=== PATIENT | female | born 1995 | race Caucasian/White ===

== ENCOUNTER 2024-04-17 14:22 | Observation (INO) | payer OTHER, SELFPAY ==
[2024-04-17] VITALS (13 sets, daily range): BP systolic 111–124; BP diastolic 63–78; PULSE 74–99; RESP 16–20; TEMP 36.6–37.1; O2SAT 90–100; BMI 32.7; BMI 33.9
--- NOTE | 2024-04-17 | APP_PTH ---
PATIENT: SAPNA PARK LOC: MS3 U#:[id number] AGE/SX: 29/F ROOM: [facility] [place] RE04/17/[address]: Dr. Quyen Jones MD : 1995 BED: 1 DIS: 04/18/2024 SPEC #: [id number] RECD: 04/18/24 08:39 STATUS: CAROLINE REJourdan #: [id number] NEIDA: 04/17/24 00:[address]: Quyen Jones DEPT: SURGICAL PATHOLOGY RECD BY: Obie Ornelas ENTERED: 04/18/24 09:03 SP TYPE: APPENDIX OT DR: No Primary Care Phys Tissues: Appendix, NOS Procedures: Surgery Specimen Level III HEADER OPERATION: Laparoscopic, appendectomy PRE-OP DIAGNOSIS: Acute appendicitis TISSUE SUBMITTED: Appendix MICROSCOPIC DIAGNOSIS Appendix, appendectomy: Acute ruptured appendicitis and periappendicitis. LORIE/ 04/19/2024 MICROSCOPIC DESCRIPTION Slides are reviewed. GROSS DESCRIPTION Received in fixative is one container labeled with the patient's name and designated appendix. The specimen consists of appendix measuring 7.5 cm in length and up to 1.0 cm in diameter. The attached periappendiceal adipose tissue measures up to 3.5 cm in width. The serosa is congested. No obvious perforation is identified. The lumen is filled with fecal material. No fecalith is identified. Ampoule Sealer sections are submitted in one cassette. / SJ:mr 04/18/2024 TC:2 CPT: 94395
--- NOTE | 2024-04-17 15:14 | EX.ED.DYSGE1 ---
HPI History of Present Illness Chief Complaint: Abd Pain [facility] Medical History (Updated 04/17/24 @ 17:33 by Windy Jorgensen) delivery delivered Home Medications ?Medication ?Instructions ?Recorded ?Last Taken ?Type NK 04/17/24 Unknown History Allergy/AdvReac Type Severity Reaction Status Date / Time Penicillins Allergy Hives Verified 04/17/24 14:24 Surgical History (Updated 04/17/24 @ 17:33 by Windy Jorgensen) H/O wisdom tooth extraction History of surgical removal of ganglion cyst Social History Smoking Status: Never smoker EXAM Physical Exam Const Vital Signs: 04/17/24 14:24 04/17/24 15:36 04/17/24 17:00 Temperature 98.2 F Temperature Source Temporal Pulse Rate 99 74 84 Respiratory Rate 18 16 19 H Blood Pressure 124/78 H 112/72 116/68 Blood Pressure Mean 93 85 84 Blood Pressure Source Blood Pressure Position Blood Pressure Location Pulse Ox 98 98 99 Oxygen Delivery Method Room Air Room Air Room Air 04/17/24 17:00 04/17/24 17:00 Temperature 98.8 F 98.5 F Temperature Source Oral Pulse Rate 83 88 Respiratory Rate 19 H 16 Blood Pressure 116/68 116/68 Blood Pressure Mean 84 84 Blood Pressure Source Monitor Blood Pressure Position Semi-Fowlers Blood Pressure Location Right Arm Pulse Ox 100 100 Oxygen Delivery Method Room Air MDM MDM MDM Narrative Medical decision making narrative: HISTORY OF PRESENT ILLNESS: 29-year-old female presents with abdominal pain and low back pain that started 2 days ago. Notes is worse today. She is having trouble tolerating p.o. fluids. Notes symptoms in the right lower quadrant. Nonradiating. Last bowel movement was today. No melena hematochezia. No vomiting. She does note nausea. Notes history of but otherwise still has her appendix and other intra-abdominal organs. No chest pain or shortness of breath. No vaginal bleeding discharge. No concern for STDs. No urinary complaints of dysuria frequency urgency. REVIEW OF SYSTEMS: Pertinent positives: Abdominal pain, nausea Pertinent negatives: Vomiting, chest pain PHYSICAL EXAM: Nursing triage notes reviewed, Vital signs reviewed Constitutional: please see mdm HENT: MMM Eyes: Pupils equal round and reactive to light, Extraocular muscles intact Neck: No stridor, no JVD, full neck ROM Lungs: Clear to auscultation, No wheezing or rales. No increased work of breathing, no conversational dyspnea, no accessory muscle use, no nasal flaring. No respiratory distress noted Heart: Regular rate and rhythm, No murmurs, No rubs and No gallops, 2+ distal pulses (radial, femoral, posterior tibial) in all extremities Abdomen: Soft, there is no tenderness, rigidity, rebound or guarding, no obvious peritoneal signs, no palpable pulsatile abdominal masses, no auscultated abdominal bruit : No CVAT Extremities: No edema Neuro: No focal neurological deficits, cranial nerves II through XII intact, 5/5 strength in all extremities. Intact sensation to light touch in all extremities, 2+ reflexes bilateral patella tendons. Normal gait. No ataxia. Skin: No rash or lesions noted MEDICAL DECISION MAKING: Chief Complaint: Abdominal pain, nausea External records reviewed: No recent adVanced imaging the abdomen pelvis Factors affecting care: penicillin allergy Social determinants of health: none History obtained from others: the patient's Consults: General surgery (Dr. Jones) MDM Narrative: Patient was hemodynamically stable, afebrile, nontoxic-appearing. Exam with right lower quadrant TTP, voluntary guarding. I considered the following differential diagnosis: AAA, small bowel obstruction, abdominal perforation, appendicitis, pancreatitis, hepatobiliary pathology (acute cholecystitis), mesenteric ischemia, pathology (ie nephrolithiasis, pyelonephritis). I initially treat the patient with IV fluids, Zofran and small dose of morphine (2 mg) for symptomatic control rehydration and nausea vomiting control. I obtained a broad lab and imaging workup to further elucidate etiology patient complaint specifically ruling out acute surgical otology abdomen pelvis with CT scan. ALL IMAGES (IF OBTAINED) HAVE BEEN PERSONALLY REVIEWED AND INTERPRETED BY MYSELF. CBC with no leukocytosis, Mild anemia, no thrombocytopenia no CMP without evidence of acute kidney injury, significant electrolyte abnormality, anion gap, no evidence hepatobiliary pathology. \ Urine test is negative Urinalysis shows no evidence of urinary inflammation suggestive of UTI CT scan showed evidence of acute appendicitis. I consulted general surgery immediately. Spoke to general surgeon on-call who recommended IV antibiotics admission for operative intervention. Patient was made n.p.o. given maintenance fluids and as needed pain medication and transferred to the OR in stable condition. The patient and/or family, caregivers express understanding. The patient and/or family, caregivers agrees with the plan. Shared decision making: I will have a discussion with the patient and or visitors regarding risk/benefits of further testing or admission. They will be made aware of of the risk/benefits inherent in this decision they will be given the opportunity to voice understanding. Total critical care time today provided was at least 35 minutes. This excludes separately billable procedures. Critical care time (if documented) is secondary to the patient having high probability of clinically significant/life threatening deterioration in the patient's condition which required my urgent intervention. Impression: 1. Acute abdominal pain 2. Acute appendicitis 3. Anemia Dispo: Admit to the OR This note was generated with Airizu dictation software. It may contain incorrect words, spelling, and punctuation that were not noted in review of the chart prior to signing. Lab Data Labs: Laboratory Results - last 24 hr 04/17/24 04/17/24 15:10 15:25 WBC 10.5 RBC 3.98 L Hgb 11.9 L Hct 36.5 L MCV 91.7 MCH 29.9 MCHC 32.6 RDW Std Deviation 45.5 H RDW Coeff of Key[place] 13.5 Plt Count 275 MPV 12.4 H Immature Gran % (Auto) 0.300 Neut % (Auto) 76.9 H Lymph % (Auto) 15.6 L [place] % (Auto) 5.9 Eos % (Auto) 0.8 Baso % (Auto) 0.5 Absolute Neuts (auto) 8.1 H Absolute Lymphs (auto) 1.64 Nucleated RBC % 0 Sodium 139 Potassium 3.8 Chloride 109 H Carbon Dioxide 27.0 Anion Gap 3 L BUN 6 L Creatinine 0.69 Estim Creat Clear Calc 144.32 Est GFR (MDRD) Af Amer 128 Est GFR (MDRD) Non-Af 106 BUN/Creatinine Ratio 8.7 L Glucose 108 H Calcium 8.8 Total Bilirubin 0.40 AST 23 ALT 45 Alkaline Phosphatase 85 Total Protein 7.9 Albumin 3.6 Globulin 4.3 H Albumin/Globulin Ratio 0.8 L Lipase 19 Serum , Qual NEGATIVE Urine Color Yellow Urine Clarity Clear Urine pH 8.0 Ur Specific [place] 1.010 Urine Protein Negative Urine Glucose (UA) Normal Urine Ketones Negative Urine Occult Blood Negative Urine Nitrite Negative Urine Bilirubin Negative Urine Urobilinogen Normal Ur Leukocyte Esterase 25 H Urine RBC 0 SEEN Urine WBC 0-5 SEEN Ur Squamous Epith Cells 0 SEEN Urine Bacteria 0 SEEN Urine Mucus 0 SEEN Radiography Diagnostic Testing: Clinical Impression(s) from Imaging Studies Abdomen/Pelvis CT 04/17/24 15:29 IMPRESSION: Acute appendicitis with an appendicolith and a small amount of free fluid in the pelvis but no abscess or perforation. Electronically Signed: Amandeep Méndez MD at 16:28 EDT , ADDENDUM: 04/17/24 1637 IMPRESSION: Acute appendicitis with an appendicolith and a small amount of free fluid in the pelvis but no abscess or perforation. N.B. : The above Results were Read Back by Amandeep Méndez MD to Oh Marcial DO, and understanding confirmed on 04/17/2024 16:30:46 (ET). Electronically Signed: Amandeep Méndez MD at 16:28 EDT , Discharge Plan Triage Chief Complaint: Abd Pain ED Provider: Oh Marcial Dx/Rx/DC Orders Prescriptions: No Action NK Primary Care Provider: Care Physician,No Primary Referrals: Care Physician,No Primary [Primary Care Provider] - Print Language: Azerbaijani
[2024-04-17 15:19] LABS: Absolute Lymphocyte Count 1.64 X10^3/uL (0.83-4.51); Absolute Neutrophil Count 8.1 X10^3/uL (2.0-7.7); Basophil# 0.05 X10^3/uL; Basophil% 0.5 % (0-1); Eosinophil# 0.08 X10^3/uL; Eosinophils% 0.8 % (0-5); Hematocrit 36.5 % (37-47); Hemoglobin 11.9 g/dL (12.0-15.0); Lymphocyte # 1.64 X10^3/ul (0.83-4.51); Lymphocyte % 15.6 % (19-41); Mean Corp Hgb Conc 32.6 g/dL (32-36); Mean Corpuscular Hgb 29.9 pg (27.0-32.0); Mean Corpuscular Volume 91.7 fL (81-99); Mean Platelet Vol. 12.4 fl (6.2-12.0); Monocyte# 0.62 X10^3/uL; Monocyte% 5.9 % (0-10); NRBC Flagged by Analyzer 0 % (0-5); Neutrophil # 8.12 X10^3/uL (2.7-7.7); Neutrophil % 76.9 % (47-70); Platelet Count 275 K/mm3 (150-450); RBC Distribution Width CV 13.5 % (11.6-14.6); RBC Distribution Width SD 45.5 fl (35.1-43.9); Red Blood Count 3.98 M/mm3 (4.2-5.4); White Blood Count 10.5 K/mm3 (4.4-11.0)
--- NOTE | 2024-04-17 15:29 | CT_ITS ---
We are attempting to reach an attending provider to discuss findings. An addendum with communication details will be sent when the communication is complete. STUDY: CT ABDOMEN AND PELVIS WITH CONTRAST REASON FOR EXAM: Female, 29 years old. RLQ TTP RADIATION DOSAGE (If Supplied By Facility): CTDIvol = ( 16.07 ) mGy, DLP = ( 1271.68 ) mGycm TECHNIQUE: Transaxial images were obtained from the dome of the diaphragm to the symphysis pubis without oral contrast. IV 100mL Isovue-300 was administered. Sagittal and coronal images were reconstructed. Individualized dose optimization techniques were used for this CT. COMPARISON: None. FINDINGS: The visualized lung bases are unremarkable. The visualized portions of the heart are within normal limits. Normal liver. Normal gallbladder and extrahepatic biliary system. Normal spleen. Normal pancreas. Normal bilateral adrenal glands. Normal right kidney. Normal left kidney. Normal visualized stomach. Normal small intestine. Normal colon. There is a tubular, thick-walled appendix (>7mm), consistent with acute appendicitis. No loculated fluid collection to suggest abscess. Small amount of free fluid in the pelvis. No pneumoperitoneum to suggest perforation. Normal abdominal aorta. Normal inferior vena cava. Normal retroperitoneum. Normal urinary bladder. There is a small umbilical hernia containing fat. Normal osseous structures. CT/Abdomen/Pelvis W IV Cont ONLY IMPRESSION: Acute appendicitis with an appendicolith and a small amount of free fluid in the pelvis but no abscess or perforation. Electronically Signed: Amandeep Méndez MD at 16:28 EDT ,
[2024-04-17 15:33] LABS: Bacteria 0 SEEN /hpf (None Seen); Mucous, Urine 0 SEEN /hpf (<or=2+); Red Blood Cells-Urine 0 SEEN /hpf (0-5); Squamous Epithelial Cells - UA 0 SEEN /hpf (5-10)
[2024-04-17] MEDS: 0.9% Normal Saline (1000mL) 1,000 ML 999 ML IV (15:37)
[2024-04-17] MEDS: Morphine 2 MG/ML Syringe IM (15:37)
[2024-04-17] MEDS: Ondansetron 4 MG/2 ML Vial IV (15:37)
[2024-04-17 15:40] LABS: Color, Urine Yellow (Yellow); Glucose, Dipstick Normal (Normal); Ketone-Dipstick Negative (Negative); Leukocyte Esterase-Dipstick 25 /ul (Negative); Nitrite-Dipstick Negative (Negative); Occult Blood-Urine Negative /ul (Negative); Protein-Dipstick Negative (Negative); Urine Bilirubin Dipstick Negative (Negative); Urine Clarity Clear (Clear); Urine Urobilinogen Normal (Normal)
[2024-04-17 15:40] LABS: Internal QC Validated? YES +Cl - CLEAR BKGD; Pregnancy, Serum, hCG Quali. NEGATIVE Negative
[2024-04-17 15:44] LABS: ALB/GLOB Ratio 0.8 RATIO (0.9-2.4); AST(SGOT) 23 U/L (15-37); Alanine Aminotransfer ALT/SGPT 45 U/L (13-56); Albumin, Serum 3.6 g/dL (3.2-5.0); Alkaline Phosphatase 85 U/L (45-117); Anion Gap 3 (5-15); BUN 6 mg/dL (7-18); BUN/Creat Ratio 8.7 RATIO (10-20); Calcium,Total 8.8 mg/dL (8.5-10.1); Chloride 109 mmol/L (98-107); Creatinine, Serum 0.69 mg/dL (0.55-1.02); EST Glomerular Filtration Rate 106 mL/min (>60); Est Glom Filt Rate - Afr Amer 128 mL/min (>60); Estimated Creatinine Clearance 144.32 ml/min; Globulin 4.3 g/dL (2.2-4.2); Glucose 108 mg/dL (74-106); Potassium 3.8 mmol/L (3.5-5.1); Protein, Total 7.9 g/dL (6.4-8.2); Sodium Level 139 mmol/L (136-145)
[2024-04-17 15:48] LABS: White Blood Cells 0-5 SEEN /hpf (0-5)
[2024-04-17 15:50] LABS: Lipase 19 U/L (13-75)
[2024-04-17] MEDS: Ketorolac 15 MG/ML Vial IV (16:31)
--- NOTE | 2024-04-17 16:32 | HP.PCM.SX_ITS ---
HPI - General General Date of Service: 04/17/24 HPI Narrative SAPNA PARK, is a 29 F who presents for right lower quadrant pain. Patient states she had some pain last couple days however it got a lot worse this morning and nausea vomiting this morning. Patient's only abdominal surgeries are C-sections. Patient CT abdomen pelvis showed acute appendicitis with appendicolith. Patient white blood count was 10.5 with left shift, patient did get Cipro and Flagyl IV in the ER due to acute appendicitis due to penicillin allergy. Patient is from [place] and visiting from out of town initially plans to go back on Monday we will see how she is doing at that time. [facility] Medical History (Updated 04/17/24 @ 17:[address] Oh Marcial, DO) delivery delivered Home Medications ?Medication ?Instructions ?Recorded ?Last Taken ?Type NK 04/17/24 Unknown History Allergy/AdvReac Type Severity Reaction Status Date / Time Penicillins Allergy Hives Verified 04/17/24 14:24 Surgical History (Updated 04/17/24 @ 17:33 by Windy Jorgensen) H/O wisdom tooth extraction History of surgical removal of ganglion cyst Social History Smoking Status: Never smoker Vital Signs Vital Signs Vital Signs: 04/17/24 14:24 04/17/24 15:36 Temperature 98.2 F Temperature Source Temporal Pulse Rate 99 74 Respiratory Rate 18 16 Blood Pressure 124/78 H 112/72 Blood Pressure Mean 93 85 Pulse Ox 98 98 Oxygen Delivery Method Room Air Room Air Weight Weight: 215 lb 3.2 oz Body Mass Index (BMI) 32.7 Physical Exam Const alert, oriented x3 and no apparent distress HEENT normocephalic and head/scalp atraumatic Resp normal respiratory effort Cardio regular rate GI soft to palpation; Negative for non-distended Palpation: tender RLQ; Negative for guarding Extremity no clubbing, cyanosis or edema Neuro CN's II-XII intact bilaterally Psych mental status grossly normal Results Lab / Micro Data 04/17/24 15:10 04/17/24 15:10 Labs: Laboratory Results - last 24 hr 04/17/24 15:10: WBC 10.5, RBC 3.98 L, Hgb 11.9 L, Hct 36.5 L, MCV 91.7, MCH 29.9, MCHC 32.6, RDW Std Deviation 45.5 H, RDW Coeff of Keyanna 13.5, Plt Count 275, MPV 12.4 H, Immature Gran % (Auto) 0.300, Neut % (Auto) 76.9 H, Lymph % (Auto) 15.6 L, [place] % (Auto) 5.9, Eos % (Auto) 0.8, Baso % (Auto) 0.5, Absolute Neuts (auto) 8.1 H, Absolute Lymphs (auto) 1.64, Nucleated RBC % 0, Sodium 139, Potassium 3.8, Chloride 109 H, Carbon Dioxide 27.0, Anion Gap 3 L, BUN 6 L, Creatinine 0.69, Estim Creat Clear Calc 144.32, Est GFR (MDRD) Af Amer 128, Est GFR (MDRD) Non-Af 106, BUN/Creatinine Ratio 8.7 L, Glucose 108 H, Calcium 8.8, Total Bilirubin 0.40, AST 23, ALT 45, Alkaline Phosphatase 85, Total Protein 7.9, Albumin 3.6, Globulin 4.3 H, Albumin/Globulin Ratio 0.8 L, Lipase 19, Serum , Qual NEGATIVE 04/17/24 15:25: Urine Color Yellow, Urine Clarity Clear, Urine pH 8.0, Ur Specific [place] 1.010, Urine Protein Negative, Urine Glucose (UA) Normal, Urine Ketones Negative, Urine Occult Blood Negative, Urine Nitrite Negative, Urine Bilirubin Negative, Urine Urobilinogen Normal, Ur Leukocyte Esterase 25 H, Urine RBC 0 SEEN, Urine WBC 0-5 SEEN, Ur Squamous Epith Cells 0 SEEN, Urine Bacteria 0 SEEN, Urine Mucus 0 SEEN Imaging Radiology Impression Abdomen/Pelvis CT 04/17/24 15:29 IMPRESSION: Acute appendicitis with an appendicolith and a small amount of free fluid in the pelvis but no abscess or perforation. Electronically Signed: Amandeep Méndez MD at 16:28 EDT , Assessment & Plan Assessment/Plan (1) Acute appendicitis: PLAN: Plan 1. Discussed procedure laparoscopic appendectomy, possible open along with the risk but not limited to bleeding, infection/abscess, injury to another organ (small bowel, colon, etc.), adhesion, hernia at incision sites, and anesthesia. Patient and her no further questions this time. Quyen Jones M.D. Pager: [phone] [facility] [address] [place] [address], [address] [place] [address] Office: [phone]
[2024-04-17] MEDS: metroNIDAZOLE 500 MG/100 ML BAG 100 MG IV (16:33)
[2024-04-17] MEDS: Ciprofloxacin 400 MG/200 ML BAG 200 MG IV (16:33)
[2024-04-17] MEDS: 0.9% Normal Saline (1000mL) 1,000 ML 150 ML IV (17:10)
--- NOTE | 2024-04-17 18:09 | ED.RN ---
REPORT CALLED TO AC NURSE MCCRAY, NO FURTHER QUESTIONS BY THE RECEIVING NURSE AT THIS TIME.
--- NOTE | 2024-04-17 18:40 | PCM.PRE.AN2 ---
ASA Classification* ASA Classification ASA Classification: 2 and E Assessment & Plan Anesthesia* Anesthesia Assessment Anesthesia Assessment: Discussed sedation and/or anesthesia options, risks, benefits, and alternatives with patient/parents/legal guardian/POA. Questions invited. The patient/parents/legal guardian/POA seems to understand and agrees to proceed with anesthesia plan. Reviewed the physical assessment, medical history, allergy history and patient home medications list prior to surgery/procedure/anesthetic and documented any changes. Performed airway and anesthesia risk assessments. Anesthesia Type Anesthesia Type: General History Source History Obtained from:: Patient and Chart Anesthesia Focused Assessment* Temperature: 98.5 F Pulse Rate: 88 Blood Pressure: 116/68 Respiratory Rate: 16 Pulse Ox: 100 Oxygen Delivery Method: Room Air Airway Assessment Mouth opens: 2 cm Mallampati Score: IV Teeth Condition: Intact Neck Range of motion (ROM): Full ROM Focused Labs Anesthesia Preop lab: CBC WBC 10.5 K/mm3 (4.4-11.0) 04/17/24 15:10 RBC 3.98 M/mm3 (4.2-5.4) L 04/17/24 15:10 Hgb 11.9 g/dL (12.0-15.0) L 04/17/24 15:10 Hct 36.5 % (37-47) L 04/17/24 15:10 Plt Count 275 K/mm3 (150-450) 04/17/24 15:10 CHEMISTRY Potassium 3.8 mmol/L (3.5-5.1) 04/17/24 15:10 Sodium 139 mmol/L (136-145) 04/17/24 15:10 BUN 6 mg/dL (7-18) L 04/17/24 15:10 Creatinine 0.69 mg/dL (0.55-1.02) 04/17/24 15:10 Glucose 108 mg/dL (74-106) H 04/17/24 15:10 COAG Pre-Assessment Diagnosis/Proposed Procedure Planned Operative Procedure(s): Laparoscopic appendectomy Anesthesia History 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 When Was Last Pacemaker Check QUESTION #4 FULL TEXT: You/Your Family Experience fever (hyperthermia) with Anesthesia Last Oral Intake Last Oral intake: Last Oral Intake NPO since 13:00 04/17/24 17:00 Meds taken in AM with sips of Yes 04/17/24 17:00 water? Meds patient instructed to [place] 04/17/24 17:00 take am of surgery PONV PONV - stage settings painter: PONV - stage settings painter Female HX of Motion Sickness HX of N/V After Surgery Non-Smoker Duration of Surgery greater than 60 minutes Number of Risk Factors PONV Score Height & Weight Height & Weight: Anesthesia: Height & Weight Height 5 ft 8 in 04/17/24 17:00 Weight: 97.613 kg 04/17/24 17:00 Body Mass Index (BMI) 32.7 04/17/24 17:00 Respiratory Assessment Respiratory Assessment - stage settings painter: Respiratory Tract Infection Hx - stage settings painter Hx Respiratory Tract Infection No 04/17/24 17:00 STOP Sleep Apnea STOP Sleep Apnea - stage settings painter: STOP Sleep Apnea - stage settings painter Hx Hypertension No 04/17/24 17:00 Hx Sleep Apnea No 04/17/24 17:00 CPAP BIPAP Do you snore loudly (louder No 04/17/24 17:00 than talking or can be heard Do you often feel tired/ No 04/17/24 17:00 fatigued/ sleepy during daytime? Has anyone observed you stop No 04/17/24 17:00 breathing during sleep? STOP Results Negative 04/17/24 17:00 QUESTION #5 FULL TEXT : Do you snore loudly (louder than talking or can be heard through closed doors)? Tobacco Use History Tobacco Use History - stage settings painter: Tobacco Use History - stage settings painter Tobacco Use Smoking Status Never smoker 04/17/24 14:23 Hx Tobacco Use Years Smoking Packs Smoked per Day Smoking Cessation Date was within the last 15 years Hx Smoking Cessation Date Hx Smoking Cessation Counseling Hematologic Medial History Hematologic Hx - stage settings painter: Hematologic Medical Hx - alternative dispute resolution mediator Hx of Blood Transfusion Hx of Transfusion in last 3 Months Date of Last Transfusion (if within last 3 months) Ever experience any problems with transfusion(s)? Specify any problems Hx of Preganancy in last 3 Months Nurse Filling Out Transfusion & Questions: Date: Time: Patient unable to answer at this time (ie. confused, unrespo /Reproduction History /Reproductive History - stage settings painter: /Reproductive Hx- stage settings painter Hx Now No 04/17/24 17:00 Gestational Age (in weeks): EDC: Hx Hx Para Hx Section SAB No 04/17/24 17:00 Active Medications Active Medications: Current Medications Generic Name Dose Route Start Last Admin Trade Name Freq PRN Reason Stop Dose Admin Sodium Chloride 1,000 mls @ 150 mls/hr 04/17/24 16:40 04/17/24 17:10 IV 150 mls/hr .[id number] FLORECITA Administration Morphine Sulfate 4 mg 04/17/24 16:37 Morphine 4 Mg/Ml Syringe IV Q4 PRN Pain Score 6-10 or Pre PT/OT PFSH Medical History delivery delivered Home Medications ?Medication ?Instructions ?Recorded ?Last Taken ?Type oxycodone-acetaminophen 5 mg-325 1 - 2 tab PO Q6H PRN pain 3 days 04/17/24 Unknown Rx mg tablet #14 tabs Allergy/AdvReac Type Severity Reaction Status Date / Time Penicillins Allergy Hives Verified 04/17/24 14:24 Surgical History H/O wisdom tooth extraction History of surgical removal of ganglion cyst Social History Smoking Status: Never smoker Review of Systems (Anesthesia) ROS Narrative System reviewed and no additional complaints, except as documented.
[2024-04-17] MEDS: Bupivacaine Mpf 0.5% 30 ML VIAL (19:07)
--- NOTE | 2024-04-17 19:51 | OP.PCM_ITS ---
Report of Operation Date of Procedure: 04/17/24 Pre-Operative Diagnosis: Acute appendicitis and umbilical hernia Post-Operative Diagnosis: Same Surgery/Procedure Performed:: Laparoscopic appendectomy, primary repair of umbilical hernia Surgeon: Quyen Jones Type of Anesthesia: General/Supplemental Anesthesiologist: Beni Mckeon Special Medications: Cipro 400 mg IV x 1 and Flagyl 500 mg IV x 1 for acute appendicitis in ER Specimen's removed: appendix Estimated Blood Loss (mL): < 10 cc Description of Procedure: Indications: 29-year-old female presented to the ER with new increased right lower quadrant pain this morning. On workup she was found to have acute appendicitis on CT and a leukocytosis of 10.5 with a left shift. Patient was started on antibiotics in the ER for acute appendicitis-Cipro/Flagyl IV Description of the procedure: The patient was placed on operating table in s upine position. General anesthesia was induced. A timeout was completed verifying correct patient, procedure, position and special equipment prior to beginning procedure. Abdomen was prepped and draped in usual sterile fashion. Incision was made in the natural skin line above the umbilicus with a 15 blade scalpel. This was the area of patient's umbilical hernia. Entry into the peritoneum was confirmed visually and no bowel was noted in the vicinity of the incision. The Clemente trocar was placed under direct vision. Abdomen insufflated with a pressure of 12-15 mmHg. Patient tolerated insertion well. The scope was inserted and the abdomen inspected. No injuries from initial trocar placement were noted. Minimal amount of fluid was seen in the right lower quadrant. An direct visualization 2 -5 mm trocars were placed one above the symphysis pubis and below the hairline and one in the left lower quadrant lateral to the rectus muscle. Care is taken to avoid injury to the bladder and inferior epigastric vessels. The table was placed in Trendelenburg position with the right side elevated. The appendix was grasped with atraumatic grasper and elevated. It was noted to be inflamed. A window was developed in the mesoappendix at the point between the base of the appendix and the cecum. An endoscopic 45 mm linear cutting stapler blue load was then used to divide and staple the base of the appendix. Enseal was used to divide the mesoappendix. The appendix was withdrawn into the Clemente trocar after being placed endoscopically retrieval bag. Appendix was sent to pathology. The appendiceal stump was then irrigated and hemostasis was assured. Fluid was suctioned no other pathology was identified. Secondary trochars were removed under direct visualization. No bleeding was noted trocar sites. The laparoscope withdrawn and the umbilical trocar removed. The abdomen was allowed to collapse. Local anesthesia of 17 mL of 0.5% Marcaine was used at the incision sites. The umbilical trocar site was closed with 2 [id number] 0 nylon suture after the fascia of the hernia was cleared with electrocautery. The skin was closed using sutures of 4-0 Monocryl and Steri-Strips. The patient was extubated. The patient tolerated the procedure well and was taken to the postanesthesia care unit in satisfactory condition. Complications none
--- NOTE | 2024-04-17 19:56 | DCINST_ITS ---
Discharge Instructions Diet Discharge Diet: Light diet - advance as tolerated Activity Discharge Activity: May Not Drive (while taking narcotic pain medications.) May shower in (days): 1 Lifting Restrictions: no lifting >20 lbs x 2 wks, no strenuous exercise for 4 wks Dressing / Incision Call your doctor if your incision/area has: Continuous Slow Oozing, Sudden Increased Bleeding, Increased Pain/ Swelling, Increased Redness, Foul Smelling Discharge and Swelling at the incision site Call your doctor if you observe: Fever of 101 or Higher Remove Dressing in: 2 days Cleanse incision/area with: Soap & Water Additional Dressing/Incision Instructions:: Steri-Strips will fall off in 7 to 10 days, if they do not fall off okay to remove after 10 days. Follow Up Care Please Follow Up With: Quyen Jones MD When: Call the office for a follow-up appointment 2 weeks; after 5 PM and on the weekends call [phone] with any concerns. Test Results: Test results from this visit will be discussed in further detail at your follow- up appointment, if applicable. Discharge Plan Admission Attending Provider: Quyen Jones Primary Care Provider: Care Physician,No Primary Instructions Print Language: Macedonian Discharge Orders/Prescriptions Prescriptions: New oxycodone-acetaminophen 5-325 mg tablet 1 - 2 tab PO Q6H PRN (Reason: pain) 3 Days Qty: 14 0RF Referrals / Follow Up: Care Physician,No Primary [Primary Care Provider] - Disposition Disposition (needs filled in before D/C Order can be placed): Home, Self Care
--- NOTE | 2024-04-17 20:04 | PCM.POST.ANE ---
Anesthesia: Postop Eval I Current Vital Signs Temperature: 98.6 F Pulse Rate: 96 Blood Pressure: 116/72 Respiratory Rate: 16 Pulse Ox: 100 Oxygen Delivery Method: Room Air Assessment Airway patent: Yes Spontaneous unlabored respirations: Yes Mental status: Asleep nausea: No Vomiting: No Anesthesia Complication: No Fluid Hydration Crystalloid volume administer (ml): 800 Total IV fluid infused: 800 Progress Note Anesthesia document: Postop Eval 1 completed: Yes
--- NOTE | 2024-04-17 20:10 | PCM.POST.ANE ---
Anesthesia: Postop Eval I Current Vital Signs Temperature: 98.6 F Pulse Rate: 96 Blood Pressure: 115/67 Respiratory Rate: 16 Pulse Ox: 100 Oxygen Delivery Method: Room Air Assessment Airway patent: Yes Spontaneous unlabored respirations: Yes Mental status: Asleep nausea: No Vomiting: No Anesthesia Complication: No Fluid Hydration Crystalloid volume administer (ml): 800 Total IV fluid infused: 800 Progress Note Anesthesia document: Postop Eval 1 completed: Yes
[2024-04-17] MEDS: Lactated Ringers 1,000 ML 120 ML IV (21:04)
[2024-04-17] MEDS: Acetaminophen 325 MG Tablet 650 MG PO (21:05)
[2024-04-17] MEDS: oxyCODONE 5 MG Tablet PO (21:05)
--- NOTE | 2024-04-17 21:24 | PCM.POSTANE2 ---
Anesthesia Postop Eval I Sum Postop Eval Completion status Anesthesia document: Postop Eval 1 completed: Yes Anesthesia Postop Eval I Summary Anesthesia Postop Eval I Summary: Anesthesia Postop Eval I: Assessment Summary Airway patent Yes 04/17/24 20:11 Spontaneous unlabored Yes 04/17/24 20:11 respirations Mental status Asleep 04/17/24 20:11 nausea No 04/17/24 20:11 Vomiting No 04/17/24 20:11 Anesthesia Postop Eval I: Fluid Summary Crystalloid volume administer 800 04/17/24 20:11 (ml) Colloids volume administered ( ml) Blood Product volume administered (ml) Total IV fluid infused 800 04/17/24 20:11 Anesthesia Postop Eval I: Summary Notes Anesthesia Complication No 04/17/24 20:11 Anesthesia Complication Comment: Post-operative progress note Anesthesia: Postop Eval II Evaluation Mental status: Awake and Calm Pain Level: 0 nausea: No Vomiting: No Complications Anesthesia Complication: No
[2024-04-18 00:56] VITALS: BP 113/59; PULSE 94; RESP 18; TEMP 36.6; O2SAT 97
[2024-04-18 05:17] VITALS: BP 112/60; PULSE 64; RESP 18; TEMP 36.7; O2SAT 98
[2024-04-18] MEDS: Acetaminophen 325 MG Tablet 650 MG PO (05:27)
[2024-04-18] MEDS: oxyCODONE 5 MG Tablet PO (05:27)
--- NOTE | 2024-04-18 07:49 | PCM.PN.SRG ---
Subjective Subjective Patient tolerated clears, ordered breakfast. Pain controlled pain meds Objective Data Objective Data Vital Signs: Vital Signs Temp Pulse Resp BP Pulse Ox O2 Del Method O2 Flow Rate 98.1 F 64 18 112/60 98 Room Air 2 04/18/24 05:04/18/24 05:04/18/24 05:04/18/24 05:04/18/24 05:04/18/24 05:04/17/24 20:20 Oxygen Flow Rate (L/min) 2 Oxygen Delivery Method Room Air Weight: 223 lb 5.252 oz Body Mass Index (BMI) 33.9 Intake & Output: Intake and Output for Last 24 Hours 04/16/24 04/17/24 04/18/24 23:59 23:59 23:59 Intake Total 2300 / 2300 1800 / 1800 Output Total 900 / 900 Balance 2300 / 2300 900 / 900 Lab / Micro Data 04/17/24 15:10 04/17/24 15:10 Labs: Laboratory Results - last 24 hr 04/17/24 15:10: WBC 10.5, RBC 3.98 L, Hgb 11.9 L, Hct 36.5 L, MCV 91.7, MCH 29.9, MCHC 32.6, RDW Std Deviation 45.5 H, RDW Coeff of [place] 13.5, Plt Count 275, MPV 12.4 H, Immature Gran % (Auto) 0.300, Neut % (Auto) 76.9 H, Lymph % (Auto) 15.6 L, [place] % (Auto) 5.9, Eos % (Auto) 0.8, Baso % (Auto) 0.5, Absolute Neuts (auto) 8.1 H, Absolute Lymphs (auto) 1.64, Nucleated RBC % 0, Sodium 139, Potassium 3.8, Chloride 109 H, Carbon Dioxide 27.0, Anion Gap 3 L, BUN 6 L, Creatinine 0.69, Estim Creat Clear Calc 144.32, Est GFR (MDRD) Af Amer 128, Est GFR (MDRD) Non-Af 106, BUN/Creatinine Ratio 8.7 L, Glucose 108 H, Calcium 8.8, Total Bilirubin 0.40, AST 23, ALT 45, Alkaline Phosphatase 85, Total Protein 7.9, Albumin 3.6, Globulin 4.3 H, Albumin/Globulin Ratio 0.8 L, Lipase 19, Serum , Qual NEGATIVE 04/17/24 15:25: Urine Color Yellow, Urine Clarity Clear, Urine pH 8.0, Ur Specific [place] 1.010, Urine Protein Negative, Urine Glucose (UA) Normal, Urine Ketones Negative, Urine Occult Blood Negative, Urine Nitrite Negative, Urine Bilirubin Negative, Urine Urobilinogen Normal, Ur Leukocyte Esterase 25 H, Urine RBC 0 SEEN, Urine WBC 0-5 SEEN, Ur Squamous Epith Cells 0 SEEN, Urine Bacteria 0 SEEN, Urine Mucus 0 SEEN Radiography Diagnostic Testing: Radiology Impression Abdomen/Pelvis CT 04/17/24 15:29 IMPRESSION: Acute appendicitis with an appendicolith and a small amount of free fluid in the pelvis but no abscess or perforation. Electronically Signed: Amandeep Méndez MD at 16:28 EDT , ADDENDUM: 04/17/24 1637 IMPRESSION: Acute appendicitis with an appendicolith and a small amount of free fluid in the pelvis but no abscess or perforation. N.B. : The above Results were Read Back by Amandeep Méndze MD to Oh Marcial DO, and understanding confirmed on 04/17/2024 16:30:46 (ET). Electronically Signed: Amandeep Méndez MD at 16:28 EDT , Physical Exam Resp normal respiratory effort Cardio regular rate GI GI Narrative: Abdomen: Soft, nondistended, tender near incision's dressed clean dry and intact, no peritoneal signs Assessment & Plan Assessment/Plan (1) History of appendectomy: PLAN: Plan Patient tolerated clears if able to tolerate breakfast will DC home Pain controlled Quyen Jones M.D. Pager: [phone] [facility] [address] [place] [address], [facility], [address] [place] [address] Office: [phone]
[2024-04-18] MEDS: Morphine 2 MG/ML Syringe IV (08:32)
[2024-04-18] MEDS: 0.9% Saline Lock 10 ML Syringe IV (08:38)
[2024-04-18 09:37] VITALS: BP 115/60; PULSE 77; RESP 18; TEMP 36.1; O2SAT 98
--- NOTE | 2024-04-18 10:14 | PHA.DC_ITS ---
Pharmacy [facility] has performed discharge medication reconciliation and counseling for this patient. The patient's discharge medication list was reviewed for discrepancies and discrepancies were resolved. The patient was counseled on the following discharge medications and changes in medications for homegoing were reviewed. 1. PERCOCET The Reason for Use, instructions for use, and potential side effects were reviewed for all new medications. The patient's questions regarding all of their medications were answered. The patient was able to verbally demonstrate an understanding of their discharge medications. The patient was counselled by Ellis Jorgensen PharmD Candidate Medications at Discharge Home Medications oxycodone-acetaminophen 5 mg-325 mg tablet 1 - 2 tab PO Q6H PRN pain 3 days #14 tabs 04/17/24
== END 2024-04-18 11:50 | disposition home or self-care (01) ==
LOC: ED 17:47 → SDC 18:08 → AC 18:14 → SDC 04-18 08:16 → MS3 04-18 08:16
PROVIDERS: Admitting Provider Surgery; Emergency Provider Emergency Medicine; Visit Provider Surgery
PROC: 0DTJ4ZZ Resection of Appendix, Percutaneous Endoscopic Approach (ICD-10-PCS; CPT 44970; principal; 2024-04-17 18:10)
DX: K35.80 Unspecified acute appendicitis (principal); K42.9 Umbilical hernia without obstruction or gangrene
CPT/HCPCS: 44970; 00840; 74177; 80053; 81001; 83690; 84703; 85025; 88304; 94668; 96361; 96372; 96374; 96375; 99221; 99285; J7030; J7120; Q9967; A4216; C1760; G0378; J0744; J2405